=== PATIENT | female | born 1975 | race Caucasian/White ===

== ENCOUNTER 2016-08-31 14:55 | Inpatient (IN) | payer OTHER ==
[~2016-08-31] VITALS: Ht 160 cm; Wt 51.1 kg
[2016-09-01] MEDS ORDERED: NAPR1TAB PO (09:10)
[2016-09-01] MEDS ORDERED: DULC100C PO (09:10)
[2016-09-07] MEDS ORDERED: LACTATED RINGER'S 1000 ML INJ 1,000 ML IV ONE (09:34)
[2016-09-07] MEDS ORDERED: PROPOFOL 200 MG/20 ML AMP IV ONE (09:34)
[2016-09-07] MEDS ORDERED: NEOSTIGMINE 3 MG/3 ML SYR IV ONE (09:34)
[2016-09-07] MEDS ORDERED: ONDANSETRON HCL 4 MG/2 ML VIAL IV PUSH ONE (09:34)
[2016-09-07] MEDS ORDERED: METRONIDAZOLE 500 MG/100 ML ISONTONIC SOLN IV SCH (12:45)
[2016-09-07] MEDS ORDERED: ceFAZolin 2 GM PREMIX 50 ML IV SCH (12:45)
[2016-09-07] MEDS ORDERED: DEXT 5%-NACL 0.9% 1000 ML INJ 1,000 ML IV SCH (12:45)
[2016-09-07] MEDS ORDERED: SODIUM CHLORID 0.9% 500 ML IV SCH (13:00)
[2016-09-07] MEDS ORDERED: METOPROLOL TARTRATE 25 MG TAB PO PRN (13:00)
[2016-09-07] MEDS ORDERED: LACTATED RINGER'S 1000 ML IV SCH (13:00)
[2016-09-07] MEDS ORDERED: INSULIN HUMAN REGULAR 1,000 UNITS/10 ML VIAL SQ PRN (13:00)
[2016-09-07 13:26] VITALS: BP 180/98; PULSE 83; RESP 20; TEMP 98.4; O2SAT 99
[2016-09-07] MEDS ORDERED: DEXAMETHASONE SOD PHOS 4 MG/ML VIAL ONE (14:04)
[2016-09-07] MEDS ORDERED: FAMOTIDINE 20 MG/2 ML VIAL ONE (14:04)
[2016-09-07] MEDS ORDERED: MIDAZOLAM HCL 2 MG/2 ML VIAL ONE (14:04)
[2016-09-07] MEDS ORDERED: ACETAMINOPHEN 1000 MG/100 ML VIAL IV ONE (14:07)
--- NOTE | 2016-09-07 14:54 | HHI.PR ---
Immediate Post Op Note Procedure Date: Sep 07, 2016 Pre Op Diagnosis: (1) Colon cancer Post Op Diagnosis: (1) Colon cancer Surgeon: Pepe Meeks Buck Presser(s): None Procedure: Cystoscopy with placement of bilateral ureteral catheters Additional Information: Consulted intraoperatively to pass bilateral ureteral catheters to aid in visualization of this patient's ureters during her colorectal procedure. Urologic procedures in detail: Concurrent with the colorectal surgeons I proceeded with cystoscopy and placement of bilateral ureteral catheters as follows: Initially cystoscopic evaluation was performed utilizing the rigid cystoscope with a 20 Slovak sheath and 30 lens. Both right and left ureteral orifices were in correct anatomic position effluxing clear yellow urine. There are no bladder mucosal lesions, calculi or diverticula formation. I then proceeded with passing a sensor 0.035 wire up the patient's left ureter until a small amount of resistance was felt. I then passed a 6 Slovak open-ended ureteral catheter 25 cm in a cephalad direction. With the catheter replaced the wire was withdrawn and reintroduced to secondary synovitis cystoscope. In similar fashion the contralateral side was accomplished. Next the wire and cystoscope withdrawn and a 16 Slovak 10 cc Link catheter was placed. Both ureteral catheters were next taken to the Link via a connector. All catheters were then placed to gravity drainage. This completes urologic surgery portion of combined procedures on this patient. Complications: None Specimen(s) removed: None Estimated blood loss: None Anesthesia: General Fluids: refer to anesthesia record Date/Time of Procedure: SEE SURGICAL CARE RECORD Pepe Meeks MD Sep 07, 2016 14:54
[2016-09-07] MEDS ORDERED: *MEPERIDINE 25 MG INJ VIAL PERIprocedural Use ONLY ONE (16:50)
[2016-09-07] MEDS ORDERED: fentaNYL CITRATE 250 MCG/5 ML AMP ONE (16:54)
[2016-09-07] MEDS ORDERED: *ENALAPRILAT 1.25 MG/ML VIAL PERIprocedural Use ONLY ONE ×2 (17:05→17:35)
[2016-09-07] MEDS: KETOROLAC TROMETHAMINE 30 MG/ML (IVP) VIAL IVP PRN (17:05)
[2016-09-07] MEDS ORDERED: *morphine SULFATE 8 MG/ML PERIprocedure ONLY ONE ×2 (17:09→17:34)
[2016-09-07] MEDS ORDERED: BENZOCAINE 6 MG/MENTHOL 10 MG LOZENGE SUCK-ON PRN (17:15)
[2016-09-07] MEDS ORDERED: diphenhydrAMINE HCL 50 MG/ML VIAL IV PRN (17:15)
[2016-09-07] MEDS ORDERED: NALOXONE HCL 0.4 MG/ML AMP IV PRN (17:15)
[2016-09-07] MEDS ORDERED: POTASSIUM CHLOR 40 MEQ PREMIX 100 ML IV PRN (17:15)
[2016-09-07] MEDS ORDERED: ACETAMINOPHEN/HYDROcodone 325 MG/5 MG TAB PO PRN (17:15)
[2016-09-07] MEDS ORDERED: ACETAMINOPHEN 325 MG TAB PO PRN (17:15)
[2016-09-07] MEDS ORDERED: SODIUM CHLORIDE 0.9% FLUSH 5 ML FLUSH IVF PRN (17:15)
[2016-09-07] MEDS ORDERED: Post-op Orders (for Pharmacy) MISC XX ONE (17:15)
[2016-09-07] MEDS ORDERED: POTASSIUM CHLOR 20 MEQ PREMIX 100 ML IV PRN (17:15)
[2016-09-07] MEDS: D5-NS + KCL 20 MEQ INJ 1,000 ML IV SCH (18:00)
[2016-09-07 18:29] LABS: AUTOMATED NEUTROPHIL # 16.9 TH/MM3 (1.8-7.7); BASOPHIL % 0.2 % (0.0-2.0); HEMATOCRIT 35.8 % (35.0-46.0); HEMO FLAGS DIFF FINAL; LYMPH % 2.5 % (9.0-44.0); LYMPHOCYTE # 0.5 TH/MM3 (1.0-4.8); MEAN CELL VOLUME 88.9 FL (80.0-100.0); MEAN CORPUSCULAR HEMOGLOBIN 29.4 PG (27.0-34.0); MEAN CORPUSCULAR HGB CONC 33.1 % (32.0-36.0); MONO % 4.1 % (0.0-8.0); NEUT % 93.2 % (16.0-70.0); PLATELET COUNT 262 TH/MM3 (150-450); RED BLOOD COUNT 4.03 MIL/MM3 (4.00-5.30); RED CELL DISTRIBUTION WIDTH 13.4 % (11.6-17.2); WHITE BLOOD COUNT 18.2 TH/MM3 (4.0-11.0)
[2016-09-07 18:45] LABS: BICARBONATE 27.1 MEQ/L (21.0-32.0); POTASSIUM 3.3 MEQ/L (3.5-5.1)
[2016-09-07 19:00] VITALS: BP 145/89; PULSE 67; PULSE 76
[2016-09-07] MEDS: MORPHINE SULFATE 30 MG/30 ML PCA IV SCH (19:06)
[2016-09-07 20:00] VITALS: PULSE 84
[2016-09-07] MEDS: SODIUM CHLORIDE 0.9% FLUSH 5 ML FLUSH IVF SCH (20:48)
[2016-09-07] MEDS: metroNIDAZOLE 500 MG INJ 100 ML IV SCH (20:48)
[2016-09-07 21:00] VITALS: PULSE 64
[2016-09-07 22:00] VITALS: PULSE 70
[2016-09-07] MEDS: PCA - TOTAL MG MORPHINE DELIVERED PER SHIFT SCH (22:00)
[2016-09-07 23:00] VITALS: BP 142/83; PULSE 68; PULSE 74; TEMP 97.9; O2SAT 98
[2016-09-08] VITALS (30 sets, daily range): BP systolic 143–176; BP diastolic 90–111; PULSE 8–97; RESP 14–20; TEMP 97.6–98.7; O2SAT 95–100
[2016-09-08] MEDS: D5-NS + KCL 20 MEQ INJ 1,000 ML IV SCH ×3 (00:28→14:37)
[2016-09-08] MEDS: ONDANSETRON HCL 4 MG/2 ML VIAL IV PRN ×2 (03:36→12:00)
[2016-09-08] MEDS: metroNIDAZOLE 500 MG INJ 100 ML IV SCH ×2 (05:00→14:34)
[2016-09-08] MEDS: PCA - TOTAL MG MORPHINE DELIVERED PER SHIFT SCH ×3 (05:09→22:00)
[2016-09-08 05:54] LABS: AUTOMATED NEUTROPHIL # 15.1 TH/MM3 (1.8-7.7); BASOPHIL % 0.1 % (0.0-2.0); HEMATOCRIT 32.5 % (35.0-46.0); HEMO FLAGS DIFF FINAL; LYMPH % 4.9 % (9.0-44.0); LYMPHOCYTE # 0.9 TH/MM3 (1.0-4.8); MEAN CELL VOLUME 88.7 FL (80.0-100.0); MEAN CORPUSCULAR HEMOGLOBIN 29.9 PG (27.0-34.0); MEAN CORPUSCULAR HGB CONC 33.7 % (32.0-36.0); MONO % 9.2 % (0.0-8.0); NEUT % 85.8 % (16.0-70.0); PLATELET COUNT 260 TH/MM3 (150-450); RED BLOOD COUNT 3.66 MIL/MM3 (4.00-5.30); RED CELL DISTRIBUTION WIDTH 13.7 % (11.6-17.2); WHITE BLOOD COUNT 17.6 TH/MM3 (4.0-11.0)
[2016-09-08 06:23] LABS: BICARBONATE 24.4 MEQ/L (21.0-32.0); POTASSIUM 4.3 MEQ/L (3.5-5.1)
[2016-09-08 06:35] LABS: CALCIUM-PROTEIN CORRECTED 7.9 MG/DL (8.5-10.1)
[2016-09-08] MEDS: SODIUM CHLORIDE 0.9% FLUSH 5 ML FLUSH IVF SCH ×2 (08:57→21:00)
[2016-09-08] MEDS: PANTOPRAZOLE SODIUM 40 MG VIAL IVP SCH (08:57)
--- NOTE | 2016-09-08 11:29 | HHI.PR ---
Subjective Remarks POD#1 s/p ex lap, sbr, diverting colostomy slight nausea pain well controlled Objective Vital Signs Date Time Temp Pulse Resp B/P Pulse Ox O2 Delivery O2 Flow Rate FiO2 09/08/16 11:10 88 18 163/97 98 09/08/16 10:12 82 09/08/16 09:01 78 09/08/16 08:40 75 09/08/16 08:01 89 09/08/16 07:55 97.6 74 14 153/98 99 09/08/16 07:38 99 21 09/08/16 07:35 76 09/08/16 06:00 70 09/08/16 05:09 20 09/08/16 05:00 74 09/08/16 04:00 68 09/08/16 03:49 98.0 66 160/93 100 09/08/16 03:00 68 09/08/16 02:00 66 09/08/16 01:00 66 09/08/16 00:00 66 09/07/16 23:00 97.9 74 142/83 98 09/07/16 23:00 68 09/07/16 22:00 70 09/07/16 22:00 18 09/07/16 21:00 64 09/07/16 20:00 84 09/07/16 19:06 12 09/07/16 19:00 76 09/07/16 19:00 67 145/89 09/07/16 18:15 97.4 64 12 161/88 100 Nasal Cannula 2 09/07/16 18:00 64 12 166/90 100 Nasal Cannula 2 09/07/16 17:45 63 12 165/92 100 Nasal Cannula 2 09/07/16 17:30 56 12 185/102 100 Nasal Cannula 2 09/07/16 17:15 57 12 193/108 100 Nasal Cannula 2 09/07/16 17:00 59 12 209/118 100 Nasal Cannula 2 09/07/16 16:45 97.3 60 12 177/116 100 Nasal Cannula 2 09/07/16 13:26 98.4 83 20 180/98 99 I/O 09/07/16 09/07/16 09/07/16 09/08/16 09/08/16 09/08/16 07:00 15:00 23:00 07:00 15:00 23:00 Intake Total 1250 ml Output Total 400 ml 400 ml Balance 850 ml -400 ml Intake Other 1250 ml Output Urine Total 250 ml 400 ml Estimated Blood Loss 150 ml Result Diagram: 09/08/16 0505 09/08/16 0505 Objective Remarks Abdomen soft, nondistended, tender Dressings c/d/i Assessment and Plan Assessment and Plan right stent removed decrease IVF Mobilize Elvia Bartlett MD Sep 08, 2016 11:29
[2016-09-08] MEDS: ENALAPRILAT 1.25 MG/ML VIAL IV PRN ×2 (12:16→17:22)
[2016-09-08] MEDS: MORPHINE SULFATE 30 MG/30 ML PCA IV SCH (15:50)
[2016-09-08] MEDS: HEPARIN SODIUM - SQ 10,000 UNITS/ML VIAL SQ SCH (15:51)
[2016-09-09] VITALS (24 sets, daily range): BP systolic 151–182; BP diastolic 90–109; PULSE 67–105; RESP 16–20; TEMP 98.5–99.3; O2SAT 96–99
[2016-09-09] MEDS: ENALAPRILAT 2.5 MG/2 ML VIAL IV PRN ×3 (00:29→21:59)
[2016-09-09] MEDS: D5-NS + KCL 20 MEQ INJ 1,000 ML IV SCH ×2 (00:30→15:27)
[2016-09-09] MEDS: HEPARIN SODIUM - SQ 10,000 UNITS/ML VIAL SQ SCH ×2 (04:44→16:21)
[2016-09-09] MEDS: MORPHINE SULFATE 30 MG/30 ML PCA IV SCH (04:47)
[2016-09-09] MEDS: PCA - TOTAL MG MORPHINE DELIVERED PER SHIFT SCH ×2 (06:00→14:00)
--- NOTE | 2016-09-09 08:37 | HHI.PR ---
Subjective Remarks POD#1 s/p ex lap, sbr, diverting colostomy still with slight nausea Dizzy with mobilization Itching Objective Vital Signs Date Time Temp Pulse Resp B/P Pulse Ox O2 Delivery O2 Flow Rate FiO2 09/09/16 07:28 98.8 90 18 162/98 97 09/09/16 07:23 90 09/09/16 06:00 83 09/09/16 05:00 99 09/09/16 04:00 86 09/09/16 04:00 98.5 87 20 151/90 98 09/09/16 03:00 67 09/09/16 02:00 70 09/09/16 01:00 74 09/09/16 00:00 98.8 87 20 172/106 99 09/09/16 00:00 80 09/08/16 23:00 8 09/08/16 22:00 88 09/08/16 21:00 78 09/08/16 20:00 98.7 90 20 176/111 98 09/08/16 20:00 82 09/08/16 18:14 159/90 09/08/16 16:30 79 158/90 09/08/16 15:55 98.4 20 169/97 95 09/08/16 15:50 20 09/08/16 15:09 97 09/08/16 15:00 80 09/08/16 14:00 20 09/08/16 13:43 20 143/92 09/08/16 13:14 76 09/08/16 12:30 81 09/08/16 12:00 98.5 20 09/08/16 11:10 88 18 163/97 98 09/08/16 11:05 91 09/08/16 10:12 82 09/08/16 09:01 78 09/08/16 08:40 75 I/O 09/08/16 09/08/16 09/08/16 09/09/16 09/09/16 09/09/16 07:00 15:00 23:00 07:00 15:00 23:00 Intake Total 3104 ml 1941 ml Output Total 400 ml 450 ml 1300 ml Balance -400 ml 2654 ml 641 ml Intake Oral 500 ml IV Total 3104 ml 1441 ml Output Urine Total 400 ml 450 ml 1300 ml Stool Total 0 ml Result Diagram: 09/08/16 0505 09/08/16 0505 Objective Remarks Abdomen soft, mild distension, tender Dressings c/d/i Assessment and Plan Assessment and Plan remove left stent D/C morphine Add Benadryl Try araceli and Elvia Silva MD Sep 09, 2016 08:37
[2016-09-09 08:38] LABS: BASOPHIL % 0.3 % (0.0-2.0); EOSINOPHIL # 0.2 TH/MM3 (0-0.4); EOSINOPHIL % 1.6 % (0.0-4.0); HEMATOCRIT 32.2 % (35.0-46.0); HEMO FLAGS DIFF FINAL; LYMPH % 11.7 % (9.0-44.0); LYMPHOCYTE # 1.3 TH/MM3 (1.0-4.8); MEAN CELL VOLUME 90.6 FL (80.0-100.0); MEAN CORPUSCULAR HEMOGLOBIN 29.5 PG (27.0-34.0); MEAN CORPUSCULAR HGB CONC 32.6 % (32.0-36.0); MONO % 8.1 % (0.0-8.0); NEUT % 78.3 % (16.0-70.0); PLATELET COUNT 246 TH/MM3 (150-450); RED BLOOD COUNT 3.55 MIL/MM3 (4.00-5.30); RED CELL DISTRIBUTION WIDTH 13.8 % (11.6-17.2); WHITE BLOOD COUNT 11.4 TH/MM3 (4.0-11.0)
[2016-09-09] MEDS ORDERED: diphenhydrAMINE HCL 50 MG/ML VIAL IV PUSH PRN (08:45)
[2016-09-09] MEDS ORDERED: PROMETHAZINE HCL 12.5 MG SUPP RECTAL PRN (08:45)
[2016-09-09] MEDS: PANTOPRAZOLE SODIUM 40 MG VIAL IVP SCH (08:46)
[2016-09-09] MEDS: SODIUM CHLORIDE 0.9% FLUSH 5 ML FLUSH IVF SCH ×2 (08:46→21:00)
[2016-09-09] MEDS: METOCLOPRAMIDE HCL 10 MG/2 ML VIAL IV PUSH SCH ×2 (09:03→16:21)
[2016-09-09] MEDS: KETOROLAC TROMETHAMINE 30 MG/ML (IVP) VIAL IVP PRN ×2 (09:04→22:59)
[2016-09-09 09:09] LABS: BICARBONATE 24.7 MEQ/L (21.0-32.0); POTASSIUM 3.8 MEQ/L (3.5-5.1)
--- NOTE | 2016-09-09 13:18 | MP ---
cc: ARLIN GONZALEZ M.D., RICHARD DATE OF SURGERY: 09/07/2016 PREOPERATIVE DIAGNOSIS Metastatic colon cancer. POSTOPERATIVE DIAGNOSIS Metastatic colon cancer. PROCEDURE 1. Exploratory laparotomy. 2. Small bowel resection. 3. Diverting loop transverse colostomy. 4. Appendectomy. SURGEON Dhruv [employer] HCM DEVELOPER SURGEON ANESTHESIA General per ET tube. ESTIMATED BLOOD LOSS 100 cc. OPERATIVE INDICATIONS The patient is a 41-year-old female who is two years out from her original sigmoid resection for a sigmoid colon cancer. She was noted to have some metastases in the pelvis and although further chemotherapy was recommended prior to surgery, she wished to go forward with surgery before any more chemotherapy. Surgery was unfortunately again delayed by the patient. OPERATIVE FINDINGS The patient had a large mass of tumor adherent to the sacral promontory of the aorta, the distal vena cava and the iliac vessels, with extension of this to the previous sigmoid anastomosis. In addition there was a small section of terminal ileum that was drawn into this tumor mass, and scattering of tumor more proximally along the descending colon as well as one tumor deposit in the omentum of the distal transverse colon. In addition she was noted to have one small tumor deposit in the left lobe of the liver, and some scattered deposits along the undersurface of the diaphragm and the right lateral peritoneum. The bowel showed no sign of immediate obstruction but the pelvis was quite tight with tumor. The left ovary and uterus appeared normal. The left ovary had a benign cyst which was drained. The right ovary was noted to have some firmness to it consistent with either tumor or possibly a cyst. OPERATIVE COURSE The patient was brought into the operating room and placed in the supine position. After induction of general anesthesia, the patient was placed in Jhonny stirrups and all bony prominences were carefully padded. The anterior abdominal wall as well as the perineal area was then prepped and draped in the usual sterile fashion. A vertical midline incision was made, beginning at the umbilicus and proceeding distally to the symphysis pubis. Using electrocautery, dissection was carried down to the fascia of the anterior abdominal wall. The fascia was then split the length of the skin incision, and there was noted to be some omentum adherent to the anterior abdominal wall. This was carefully dissected free. At this point the patient was noted to have the left ovarian cyst and quite a bit of tumor, but the small bowel was largely free. The liver was felt and the previously noted tumor deposit was noted, as were the peritoneal and diaphragmatic deposits. The incision was then extended up to the midepigastric area, and the small bowel was then carefully dissected free. Then after further evaluation there was noted to be a very large deposit of tumor growing posteriorly into the sacrum and very densely adherent to both the aorta and the vena cava and extending over to the previous sigmoid anastomosis on the left. The small bowel was slowly and tediously dissected free from its attachments, from the terminal ileum down into the tumor mass, as it was obstructed. Eventually we were able to dissect this free. However, there was a small tear of the bowel and plans to resect that later in the surgery. At this point the descending colon was evaluated. I realized I would not be able to remove any significant amount of tumor in this patient without a very high mortality, so we elected to plan for a diverting loop colostomy as well as the small bowel resection. The lesser sac was then opened. Dissection was continued across the mid lesser sac, freeing the transverse colon from the free edge of the omentum. The area with the small nodule of tumor within was dissected free from the stomach toward the colon. Eventually we were able to dissect up and around the splenic flexure and I was eventually able to retract the colon to the right and free up the posterior attachments of the descending colon. Eventually we had free mobility of the transverse colon, splenic flexure and most of the descending colon. After evaluating the bowel, I felt that the distal transverse colon was the area most free of disease for appropriate stoma. This came down nicely into the left lower quadrant. A window was made in the mesentery at this level for later formation of her stoma. The small bowel was then evaluated and the area of concern was just proximal to the ileocecal valve. It was a distance of possibly 15 cm in length. The mesentery proximal and distal to the area of concern was opened using electrocautery, and a PREETI 55 stapler, blue load, was placed across the bowel at this level. The intervening mesentery was serially divided and ligated using 0 Vicryl ties. The appendix was noted to be closely adherent to this area as well and was carefully dissected free. The appendix was then dissected free at its the base and a reload of the PREETI 55 blue load was placed across the appendix at this level, fired, and removed. The mesentery was divided using 0 Vicryl ties. The antimesenteric corners of the staple lines were then removed. One limb of the gastrointestinal stapler was placed down each limb of the bowel. This was closed along the antimesenteric border, fired and removed, thus creating an enteroenterotomy. The resulting enterotomy was closed transversely using the TX 60 stapling device. The anastomosis was palpated and found to be widely patent. The mesenteric defect was closed in a running fashion using 3-0 Vicryl and a simple stay suture was placed at the distal end of the anastomosis using 3-0 Vicryl. A site was then chosen for the colostomy, one-third of the way from the umbilicus to the left anterior superior iliac spine. A 2 cm ellipse of skin was removed sharply, and the preperitoneal fat was removed down to the level of fascia. The fascia was then scored vertically for a distance of 1.5 cm and the fibers of the rectus abdominis muscle were split. The posterior fascia was then opened the length of the skin incision, and the colostomy opening was then gently dilated until it easily allowed two fingerbreadths. The loop of distal transverse colon was then brought up and lay nicely through the stomal aperture without tension, with the proximal end of the bowel in the cephalad position. The peritoneal cavity was copiously irrigated with warm normal saline and all dissection beds were examined with no sign of any bleeding noted. The fascia of the anterior abdominal wall was closed in a running fashion using #1 PDS. The wound was copiously irrigated with warm normal saline and the skin was closed in a running subcuticular fashion with 3-0 Vicryl. The stoma was then opened and both ends were matured in a typical Laura fashion using 3-0 Vicryl. Sterile dressing and a stomal appliance was then applied. All sponge, needle and instrument counts were correct. The patient was returned to the post-anesthesia care unit in stable condition. MD PABLO Walker/NICOLE /5:17 PM /12:51 PM [facility]PITALAlessia
[2016-09-09] MEDS: HYDROmorphone HCL PF 1 MG/ML VIAL IV PUSH PRN ×2 (16:40→20:36)
[2016-09-09] MEDS: ENALAPRILAT 1.25 MG/ML VIAL IV PRN (17:49)
[2016-09-09] MEDS: cloNIDine HCL 0.1 MG TAB PO PRN (23:08)
[2016-09-10] VITALS (15 sets, daily range): BP systolic 142–181; BP diastolic 89–109; PULSE 72–100; RESP 16–18; TEMP 98–98.6; O2SAT 97–100
[2016-09-10] MEDS: hydrALAZINE HCL 20 MG/ML VIAL IV PRN ×2 (00:07→23:36)
[2016-09-10] MEDS: METOCLOPRAMIDE HCL 10 MG/2 ML VIAL IV PUSH SCH ×4 (00:15→21:02)
[2016-09-10] MEDS: D5-NS + KCL 20 MEQ INJ 1,000 ML IV SCH (02:25)
[2016-09-10] MEDS: HEPARIN SODIUM - SQ 10,000 UNITS/ML VIAL SQ SCH ×2 (03:09→17:42)
[2016-09-10 06:19] LABS: AUTOMATED NEUTROPHIL # 7.4 TH/MM3 (1.8-7.7); BASOPHIL % 0.4 % (0.0-2.0); EOSINOPHIL # 0.2 TH/MM3 (0-0.4); EOSINOPHIL % 2.1 % (0.0-4.0); HEMO FLAGS DIFF FINAL; LYMPHOCYTE # 1.1 TH/MM3 (1.0-4.8); MEAN CELL VOLUME 88.5 FL (80.0-100.0); MEAN CORPUSCULAR HEMOGLOBIN 30.3 PG (27.0-34.0); MEAN CORPUSCULAR HGB CONC 34.3 % (32.0-36.0); MONO % 6.9 % (0.0-8.0); NEUT % 78.6 % (16.0-70.0); PLATELET COUNT 239 TH/MM3 (150-450); RED BLOOD COUNT 3.62 MIL/MM3 (4.00-5.30); RED CELL DISTRIBUTION WIDTH 13.3 % (11.6-17.2); WHITE BLOOD COUNT 9.4 TH/MM3 (4.0-11.0)
[2016-09-10 06:44] LABS: BICARBONATE 25.1 MEQ/L (21.0-32.0); POTASSIUM 3.8 MEQ/L (3.5-5.1)
[2016-09-10] MEDS: HYDROmorphone HCL PF 1 MG/ML VIAL IV PUSH PRN (10:21)
[2016-09-10] MEDS: PANTOPRAZOLE SODIUM 40 MG VIAL IVP SCH (10:21)
[2016-09-10] MEDS: SODIUM CHLORIDE 0.9% FLUSH 5 ML FLUSH IVF SCH ×2 (10:22→21:00)
[2016-09-10] MEDS: PCA - TOTAL MG MORPHINE DELIVERED PER SHIFT SCH ×2 (14:00→21:01)
--- NOTE | 2016-09-10 15:26 | HHI.PR ---
Subjective Remarks POD#3 s/p ex lap, sbr, diverting colostomy No more dizziness Comfortable Distressed re stoma Objective Vital Signs Date Time Temp Pulse Resp B/P Pulse Ox O2 Delivery O2 Flow Rate FiO2 09/10/16 14:04 81 09/10/16 13:37 83 09/10/16 12:27 72 09/10/16 11:46 98.3 78 18 144/97 98 09/10/16 11:00 80 09/10/16 10:00 84 09/10/16 09:19 98.4 87 18 142/92 97 09/10/16 09:00 80 09/10/16 08:00 76 09/10/16 07:34 75 09/10/16 02:00 98.4 81 16 142/89 99 09/10/16 02:00 100 09/10/16 00:00 84 09/10/16 00:00 98.5 81 16 181/109 99 09/09/16 22:00 98 09/09/16 20:00 86 09/09/16 20:00 99.3 92 16 182/109 99 09/09/16 18:00 84 09/09/16 17:00 82 09/09/16 16:00 86 I/O 09/09/16 09/09/16 09/09/16 09/10/16 09/10/16 09/10/16 07:00 15:00 23:00 07:00 15:00 23:00 Intake Total 1941 ml 1683 ml 1263 ml Output Total 1300 ml 1700 ml 800 ml Balance 641 ml -17 ml 463 ml Intake Oral 500 ml 500 ml 180 ml IV Total 1441 ml 1183 ml 1083 ml Output Urine Total 1300 ml 1700 ml 700 ml Stool Total 0 ml 0 ml 100 ml Result Diagram: 09/10/16 0542 09/10/16 0542 Objective Remarks Abdomen soft, mild distension, tender Wound clean Stoma pink Assessment and Plan Assessment and Plan D/C tele D/C hoff Advance diet Mobilize Elvia Bartlett MD Sep 10, 2016 15:26
[2016-09-10] MEDS: ACETAMINOPHEN/HYDROcodone 325 MG/5 MG TAB PO PRN ×2 (17:42→23:37)
--- NOTE | 2016-09-10 21:41 | MB ---
cc: SAMIR LAUREN DATE OF CONSULTATION 09/10/16 REASON FOR CONSULTATION Metastatic colon cancer. PATIENT PROFILE The patient is a 41-year-old female. She is originally from the [facility]. Her several months ago of lung cancer. She is a pharmacist. She has never smoked. She does not drink. She has no children. She resides in [place]. HISTORY OF PRESENT ILLNESS The patient developed abdominal pain, cramps, diarrhea and rectal bleeding in February of 2015. It took a while to get to a physician and, on 06/13/2015, she had a colonoscopy and was found to have an adenocarcinoma of the sigmoid colon. At presentation, she had a tumor in the sigmoid colon and a 9 mm lesion in the liver and what appeared to be adjacent adenopathy to the primary tumor in the colon. On 07/12/2015, Dr. Vy Wood at [facility] performed surgery. She was found to have a pathologic T4 N2a M1 carcinoma. 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 She had a needle biopsy of the right lung nodule which revealed adenocarcinoma. I saw her originally on August 26, 2015. She was treated with chemotherapy with FOLFOX Avastin from 09/23/2015 through 03/04/2016. On 02/03/2016, she had a PET scan showing no increased activity and the lesion in the right lung was smaller. She did not want to continue chemotherapy or change to additional therapy. Treatment was held at her request. On 06/29/2016, she had a PET scan and this suggested recurrent disease in the area of the sigmoid colon and the lung lesion was larger. At that time, I felt that she had progressive disease and I wanted to treat her with chemotherapy using irinotecan 5-FU leukovorin and possibly Erbitux depending upon her KRAS status. She did not want any treatment. She wanted the local recurrence removed in the pelvis. She was referred to Dr. Elvia Bartlett. The patient then went to [place] and then [place] which further delayed treatment. Dr. Bartlett performed surgery on 09/09/2016 attempting to remove the recurrence in the pelvis. Unfortunately, this was not possible. The patient was noted to have metastatic disease in the pelvis which was extensive going down towards the sacrum consisting of a large mass adherent to the sacral promontory of the aorta. There was also a small section of terminal ileum that was drawn into the tumor mass and there was scattering of tumor along the descending colon as well as one tumor deposit in the omentum of the distal transverse colon. She was noted to have one small tumor deposit in the left lobe of the liver and some scattered deposits along the undersurface of the diaphragm and the right lateral peritoneum. The right ovary had a firmness suggesting either a cyst or possibly tumor. The malignancy could not be removed and she underwent a small bowel resection as well as a diverting loop transverse colostomy. She is now recovering from surgery. PAST SURGICAL HISTORY 1. Current surgery dated 09/07/2016 exploratory laparotomy, small bowel resection and diverting loop transverse colostomy 2. [id number] placement 3. 07/12/2015 low anterior resection of sigmoid colon and rectum revealing invasive moderately bilaterally to poorly differentiated colorectal adenocarcinoma pathologic T4a, N2a M1 with a single pulmonary nodule. MEDICATIONS Prior to admission 1. Naprosyn 2. Dulcolax ALLERGIES No known allergies. FAMILY HISTORY Mother is living. Father is . She has three sisters living. Father of [place]. There is no family history of cancer of the colon or uterine cancer or any cancer. REVIEW OF SYSTEMS No change in vision or hearing. No chest pain, palpitations, no shortness of breath. She has had recent constipation, abdominal pain and cramps. She has had recent pain radiating from the hip area down to the right thigh. It is better since the surgery. No melena, hematochezia or hematemesis. No dysuria, frequency. PHYSICAL EXAMINATION GENERAL: A female. She does not appear acutely ill. VITAL SIGNS: Blood pressure 150/90, respiratory rate 18, pulse 80 afebrile. O2 sat 100%. HEENT: Head is normocephalic. Sclerae and conjunctivae are normal. Oropharynx unremarkable. No adenopathy. HEART: Regular rhythm. LUNGS: Clear. ABDOMEN: Soft. There is a colostomy present. No hepatosplenomegaly. EXTREMITIES: No edema. MUSCULOSKELETAL: No bone pain. NEUROLOGIC: No weakness. Cognition, affect normal. SKIN: Normal. ASSESSMENT The patient is a 41-year female. She has widespread metastatic colon cancer. She has disease involving the lung, peritoneal cavity, omentum, small bowel, colon, and has an extensive mass in the pelvis. Her disease is progressing rapidly. OPTIONS 1. I would like to treat her with an irinotecan based regimen. This is FOLFIRI. I have requested KRAS, NRAS and BRAf testing as if there is a mutation in any of these genes then the addition of Erbitux will not be helpful. 2. 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 There was a trial reported in the [place] Journal of [employer] approximately a year ago with excellent responses to immune checkpoint inhibitors in patients with micro satellite instability due to the multiple mutations that are caused by micro satellite instability. 3. The patient is presently reluctant to undergo chemotherapy. She is hoping for some other alternative treatment. I did explain to her that treatment such as Cetuximab or Avastin alone have a very minimal impact on survival. Her in-laws have strongly suggest that she go to the [facility] for a second opinion. I told her to contact her insurance company and see if they will cover an opinion at [facility] and I will make a referral to [facility] or simply any center that she would like in this country. I also indicated that she will need to begin therapy in the near future. She has extensive disease in the pelvis and I believe that she has had rapid progression of her cancer. I will ask the nursing staff to access her port rather than use peripheral IVs and we will obtain a repeat CEA which I suspect will be significantly elevated. MD IVAN Haley/ /8:44 PM /9:11 PM [facility]
[2016-09-11] VITALS: BP 184/110; PULSE 80; RESP 18; TEMP 98.7; O2SAT 100
[2016-09-11] MEDS: ONDANSETRON HCL 4 MG/2 ML VIAL IV PRN (02:50)
[2016-09-11] MEDS: D5-NS + KCL 20 MEQ INJ 1,000 ML IV SCH (02:51)
[2016-09-11] MEDS: HEPARIN SODIUM - SQ 10,000 UNITS/ML VIAL SQ SCH ×2 (02:54→15:00)
[2016-09-11] MEDS: PCA - TOTAL MG MORPHINE DELIVERED PER SHIFT SCH ×3 (02:55→22:00)
[2016-09-11 04:43] VITALS: BP 100/110; PULSE 103; RESP 18; TEMP 99.2; O2SAT 97
[2016-09-11] MEDS: ACETAMINOPHEN/HYDROcodone 325 MG/5 MG TAB PO PRN ×2 (08:27→15:00)
[2016-09-11] MEDS: SODIUM CHLORIDE 0.9% FLUSH 5 ML FLUSH IVF SCH (08:27)
[2016-09-11] MEDS: METOCLOPRAMIDE HCL 10 MG/2 ML VIAL IV PUSH SCH ×2 (08:27→16:55)
[2016-09-11] MEDS: PANTOPRAZOLE SODIUM 40 MG VIAL IVP SCH (08:27)
[2016-09-11 08:30] VITALS: BP 156/97; PULSE 88; RESP 16; TEMP 97.5; O2SAT 99
[2016-09-11 11:30] VITALS: BP 155/92; PULSE 85; RESP 16; TEMP 97.6; O2SAT 99
[2016-09-11] MEDS: cloNIDine HCL 0.1 MG TAB PO PRN (15:00)
[2016-09-11 15:32] VITALS: BP 167/108; PULSE 85; RESP 16; TEMP 97.6; O2SAT 97
--- NOTE | 2016-09-11 15:51 | HHI.PR ---
Subjective Remarks POD#4 s/p ex lap, sbr, diverting colostomy Emesis last night No nausea now Objective Vital Signs Date Time Temp Pulse Resp B/P Pulse Ox O2 Delivery O2 Flow Rate FiO2 09/11/16 15:32 97.6 85 16 167/108 97 09/11/16 11:30 97.6 85 16 155/92 99 09/11/16 09:29 18 09/11/16 08:30 97.5 88 16 156/97 99 09/11/16 04:43 99.2 103 18 100/110 97 09/11/16 00:00 98.7 80 18 184/110 100 09/10/16 20:00 98.6 77 18 168/102 100 09/10/16 17:32 98.0 82 18 159/92 100 I/O 09/10/16 09/10/16 09/10/16 09/11/16 09/11/16 09/11/16 07:00 15:00 23:00 07:00 15:00 23:00 Intake Total 1263 ml 1181 ml 888 ml Output Total 800 ml 700 ml 675 ml Balance 463 ml 481 ml 213 ml Intake Oral 180 ml 480 ml 200 ml IV Total 1083 ml 701 ml 688 ml Output Urine Total 700 ml 650 ml 600 ml Stool Total 100 ml 50 ml 0 ml Emesis 75 ml Result Diagram: 09/10/16 0542 09/10/16 0542 Objective Remarks Abdomen soft, nondistended, tender Wound clean Stoma pink Assessment and Plan Assessment and Plan Lasix Advance diet Elvia Bartlett MD Sep 11, 2016 15:51
[2016-09-11] MEDS: FUROSEMIDE 20 MG/2 ML VIAL IV PUSH SCH (16:55)
[2016-09-11 20:00] VITALS: BP 171/91; PULSE 77; RESP 21; TEMP 98.5; O2SAT 100
[2016-09-12] VITALS: BP 161/88; PULSE 86; RESP 20; TEMP 96.8; O2SAT 96
[2016-09-12] MEDS: SODIUM CHLORIDE 0.9% FLUSH 5 ML FLUSH IVF SCH ×2 (00:39→09:01)
[2016-09-12] MEDS: METOCLOPRAMIDE HCL 10 MG/2 ML VIAL IV PUSH SCH ×3 (00:40→17:07)
[2016-09-12 04:00] VITALS: BP 172/88; PULSE 88; RESP 20; TEMP 98.2; O2SAT 96
[2016-09-12] MEDS: ENALAPRILAT 1.25 MG/ML VIAL IV PRN ×2 (04:00→13:55)
[2016-09-12] MEDS: PCA - TOTAL MG MORPHINE DELIVERED PER SHIFT SCH (04:16)
[2016-09-12] MEDS: HEPARIN SODIUM - SQ 10,000 UNITS/ML VIAL SQ SCH ×2 (04:16→17:07)
[2016-09-12] MEDS: ACETAMINOPHEN/HYDROcodone 325 MG/5 MG TAB PO PRN ×3 (04:20→17:06)
[2016-09-12 08:00] VITALS: BP 153/83; PULSE 80; RESP 16; TEMP 98.2; O2SAT 96
[2016-09-12] MEDS: FUROSEMIDE 20 MG/2 ML VIAL IV PUSH SCH (08:59)
[2016-09-12] MEDS: PANTOPRAZOLE SODIUM 40 MG VIAL IVP SCH (09:05)
--- NOTE | 2016-09-12 11:22 | HHI.PR ---
Subjective Remarks C/R Surg afebrile, VSS stoma functioning anni PO Objective - Vital Signs Date Time Temp Pulse Resp B/P Pulse Ox O2 Delivery O2 Flow Rate FiO2 09/12/16 08:00 98.2 80 16 153/83 96 09/09/16 09:10 21 Result Diagram: 09/10/16 0542 09/10/16541 Objective Remarks PE alert Abd - soft, mild tympany, wound clean, stool+ A/P Assessment and Plan Imp: adv diet OOB dc plans Basil Kraus MD Sep 12, 2016 11:22
[2016-09-12 12:00] VITALS: BP_SYST 140; BP_SYST 172; BP_DIAS 82; BP_DIAS 91; PULSE 80; RESP 17; TEMP 98; O2SAT 98
[2016-09-12 16:00] VITALS: BP_SYST 155; BP_SYST 177; BP_DIAS 90; BP_DIAS 96; PULSE 81; RESP 19; TEMP 98.4; O2SAT 98
[2016-09-12 20:00] VITALS: BP 160/84; PULSE 90; RESP 18; TEMP 98.1; O2SAT 95
[2016-09-13] VITALS: BP 158/88; PULSE 81; RESP 18; TEMP 98; O2SAT 96
[2016-09-13] MEDS: METOCLOPRAMIDE HCL 10 MG/2 ML VIAL IV PUSH SCH ×2 (00:57→09:20)
[2016-09-13] MEDS: SODIUM CHLORIDE 0.9% FLUSH 5 ML FLUSH IVF SCH ×2 (00:57→09:21)
[2016-09-13] MEDS: ACETAMINOPHEN/HYDROcodone 325 MG/5 MG TAB PO PRN ×2 (02:54→09:29)
[2016-09-13] MEDS: HEPARIN SODIUM - SQ 10,000 UNITS/ML VIAL SQ SCH (02:55)
[2016-09-13 08:00] VITALS: BP 165/95; PULSE 86; RESP 18; TEMP 97.4; O2SAT 98
[2016-09-13] MEDS ORDERED: FUROSEMIDE 20 MG/2 ML VIAL IV PUSH SCH (09:00)
[2016-09-13] MEDS: PANTOPRAZOLE SODIUM 40 MG VIAL IVP SCH (09:20)
[2016-09-13] MEDS: ENALAPRILAT 1.25 MG/ML VIAL IV PRN (09:21)
[2016-09-13] MEDS ORDERED: HYDR-3516 PO (11:18)
--- NOTE | 2016-09-13 11:20 | HHI.FF ---
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 My clinical findings support the need for the requested home health care services because: Ltd mobility - disease progression Deconditioned w/ increased weakness Need for psychosocial assistance I certify that my clinical findings support that this patient is homebound because: Post-op weakness Unsteady gait/balance Basil Kraus MD Sep 13, 2016 11:20
[2016-09-13 12:00] VITALS: BP 145/90; PULSE 88; RESP 17; TEMP 98.2; O2SAT 98
[2016-11-26] MEDS ORDERED: LIDO1PAD52 TOPICAL (13:05)
--- NOTE | 2017-01-06 11:08 | MD ---
cc: ELVIA GONZALEZ M.D. ADMISSION DATE: 09/07/2016 DISCHARGE DATE: 09/13/2016 ADMISSION DIAGNOSIS Sigmoid colon cancer with liver metastases. DISCHARGE DIAGNOSIS Sigmoid colon cancer with liver metastases. PROCEDURE 1. Cystoscopy with placement of bilateral ureteral catheters. 2. Exploratory laparotomy with small bowel resection, diverting transverse colostomy and appendectomy. CONSULTATIONS Dr. Albino Jesus BRIEF HISTORY The patient is a 41-year-old female who is two years out from her original sigmoid resection for a sigmoid colon cancer. She was noted to have some metastases in the pelvis and she was recommended for chemotherapy prior to surgery. She elected to proceed with surgery without pursuing any further chemotherapy. HOSPITAL COURSE She was admitted to the hospital on 09/06/2016 after an outpatient bowel prep at which time she underwent the above-named procedures. Postoperatively she did well with gradual return of bowel and bladder function. She was discharged to home on 09/13/2016 with instructions to follow-up with myself in the office. Final pathology was not available at the time of discharge. Elvia Gonzalez MD KW/BT /12:02 AM /11:06 AM
== END 2016-09-13 15:00 | disposition home health service (06) | DRG 330 ==
LOC: HSDI 09-07 12:08 → HCIN 09-07 18:38 → N07B 09-11 18:54
PROVIDERS: ADMIT Colon & Rectal Surgery; ATTEND Colon & Rectal Surgery
PROC: 0DTJ0ZZ Resection of Appendix, Open Approach (ICD-10-PCS; 2016-09-07)
PROC: 0DTN0ZZ Resection of Sigmoid Colon, Open Approach (ICD-10-PCS; principal; 2016-09-07 14:06)
PROC: 0D1L0Z4 Bypass Transverse Colon to Cutaneous, Open Approach (ICD-10-PCS; 2016-09-07 14:06)
DX: C18.9 Malignant neoplasm of colon, unspecified (principal); C79.51 Secondary malignant neoplasm of bone; C78.00 Secondary malignant neoplasm of unspecified lung; Z92.21 Personal history of antineoplastic chemotherapy
CPT/HCPCS: 76937; 80048; 82378; 84155; 85025; 86850; 86900; 86901; 88304; 88307; 88309; 94150; C1765; C1769; C9113; J0131; J0360; J0690; J1100; J1170; J1200; J1644; J1885; J1940; J2175; J2250; J2270; J2405; J2710; J2765; J3010; J3480; J7120

== ENCOUNTER → 2016-09-02 | Outpatient (CLI) | payer OTHER ==
[~2016-09-02] MED LIST: DULC100C PO; HYDR-3516 PO; LIDO1PAD52 TOPICAL; NAPR1TAB PO
== END ==
LOC: CPRE 13:20
PROVIDERS: ATTEND Colon & Rectal Surgery
DX: Z01.812 Encounter for preprocedural laboratory examination (principal); C18.7 Malignant neoplasm of sigmoid colon; C18.9 Malignant neoplasm of colon, unspecified